=== PATIENT | male | born 1975 ===

== ENCOUNTER 2017-03-31 12:58 | Emergency (ER) | payer MEDICARE ==
[2017-03-31 13:25] VITALS: TEMP 99
--- NOTE | 2017-03-31 13:33 | ED PDOC ---
Arrival/HPI - General Chief Complaint: Upper Extremity Problem/Injury Time Seen by Provider: 03/31/17 13:28 Historian: Patient - History of Present Illness Narrative History of Present Illness (Text): 03/31/17 13:29 This 41 yo male with pmh chronic neck and back pain, presents to this ED c/o left shoulder pain since yesterday. Patient denies trauma, fall, heavy lifting , weakness, paresthesias, skin rash, or abnormal gait. Time/Duration: Other (see hpi) Quality: Aching Context: Home Past Medical History - Provider Review Nursing Documentation Reviewed: Yes - Infectious Disease Hx of Infectious Diseases: None - Musculoskeletal/Rheumatological Hx Back Pain: Yes Hx Spinal Stenosis: Yes - Psychiatric Hx Anxiety: Yes Hx Substance Use: No - Surgical History Other/Comment: Neck Surgery Family/Social History - Physician Review Nursing Documentation Reviewed: Yes Family/Social History: Other (noncontributory) Smoking Status: Never Smoked Hx Alcohol Use: No Hx Substance Use: No Allergies/Home Meds Allergies/Adverse Reactions: Allergies No Known Allergies Allergy (Verified 03/31/17 13:18) Home Medications: Home Meds Medication Instructions Recorded Confirmed Cyclobenzaprine [Flexeril] 10 mg PO HS 04/18/15 03/31/17 Amitriptyline [Elavil] 25 mg PO HS 03/31/17 03/31/17 Gabapentin [Neurontin] 1 tab PO Q6 03/31/17 03/31/17 Zolpidem [Ambien] 1 tab PO HS 03/31/17 03/31/17 Review of Systems - Review of Systems Constitutional: Normal. absent: Fatigue, Weight Change, Fevers Eyes: Normal ENT: Normal Respiratory: Normal Cardiovascular: Normal Gastrointestinal: Normal Genitourinary Male: Normal Musculoskeletal: Other (see hpi) Skin: Normal Neurological: Normal Endocrine: Normal Hemo/Lymphatic: Normal Psychiatric: Normal Physical Exam Vital Signs Temp Pulse Resp BP Pulse Ox 03/31/17 15:43 88 16 118/78 98 03/31/17 13:24 99.0 F 99 H 17 133/87 97 Temperature: Afebrile Blood Pressure: Normal Pulse: Regular Respiratory Rate: Normal Appearance: Positive for: Well-Appearing, Non-Toxic, Comfortable Pain Distress: None Mental Status: Positive for: Alert and Oriented X 3 - Systems Exam Head: Present: Atraumatic, Normocephalic Pupils: Present: PERRL Extroacular Muscles: Present: EOMI Conjunctiva: Present: Normal Mouth: Present: Moist Mucous Membranes Neck: Present: Normal Range of Motion, Trachea Midline. No: Meningeal Signs, MIDLINE TENDERNESS, Paraspinal Tenderness, Lymphadenopathy Respiratory/Chest: Present: Clear to Auscultation, Good Air Exchange. No: Respiratory Distress, Accessory Muscle Use Cardiovascular: Present: Regular Rate and Rhythm, Normal S1, S2. No: Murmurs Abdomen: Present: Normal Bowel Sounds. No: Tenderness, Distention, Peritoneal Signs Back: Present: Normal Inspection. No: CVA Tenderness Upper Extremity: Present: Normal Inspection, Normal ROM, NORMAL PULSES, Tenderness, Capillary Refill < 2s. No: Cyanosis, Edema Lower Extremity: Present: Normal Inspection. No: Edema Neurological: Present: GCS=15, CN II-XII Intact, Speech Normal, Motor Func Grossly Intact, Normal Sensory Function, Normal Cerebellar Funct, Gait Normal Skin: Present: Warm, Dry, Normal Color. No: Rashes Psychiatric: Present: Alert, Oriented x 3, Normal Insight, Normal Concentration Medical Decision Making ED Course and Treatment: 03/31/17 15:17 Re-evaluation. Patient feels better. Discussed results and plan with patient who expresses understanding. All questions answered and there is agreement with the plan to discharge home with instructions. Patient stable for discharge. Return if symptoms persist or worsen. Patient was recommended to f/u orthopedist for his chronic neck and back pain Re-evaluation Time: 15:17 Reassessment Condition: Re-examined, Improved - Medication Orders Current Medication Orders: Discontinued Medications Diazepam (Valium) 10 mg PO ONCE ONE PRN Reason: Protocol Stop: 03/31/17 13:29 Last Admin: 03/31/17 13:42 Dose: 10 mg Ketorolac Tromethamine (Toradol) 30 mg IM STAT STA Stop: 03/31/17 13:29 Last Admin: 03/31/17 13:42 Dose: 30 mg [facility] Pain Assessment Document 03/31/17 13:42 RG (Rec: 03/31/17 13:43 JAGUAR [id number]) Pain Reassessment Is this a pain reassessment? Yes Sleep Is patient sleeping during reassessment? No Presence of Pain Presence of Pain Yes Pain Scale Used Pain Scale Used Numeric Location Left, Right or Bilateral Left Pain Location Body Site Shoulder Description Description Constant Intensity of Pain at present 9 Pain Behavior Moaning Grasping Site Aggravating Factors ADL's Changing Position Exercise/Activity Contant IM Administration Charges Document 03/31/17 13:42 (Rec: 03/31/17 13:43 [id number]) Injection Site MAR Injection Site Left Deltoid Charges for Administration # of IM Administrations 1 Re-Assess: MAR Pain Assessment Document 03/31/17 14:42 RG (Rec: 03/31/17 15:43 [id number] Pain Reassessment Is this a pain reassessment? Yes Location Left, Right or Bilateral Right Pain Location Body Site Shoulder Description Description Constant Intensity of Pain at present 5 Pain Behavior Guarding Disposition/Present on Arrival - Present on Arrival Any Indicators Present on Arrival: No History of DVT/PE: No History of Uncontrolled Diabetes: No Urinary Catheter: No History of Decub. Ulcer: No History Surgical Site Infection Following: None - Disposition Have Diagnosis and Disposition been Completed?: Yes Diagnosis: Muscle spasm of left shoulder Disposition: HOME/ ROUTINE Disposition Time: 15:18 Patient Plan: Discharge Condition: IMPROVED Discharge Instructions (ExitCare): Muscle Spasm (ED) Additional Instructions: Call private doctor for follow up visit in 1-2 days. Take medication as instructed. return to emergency if symptoms worsen. Prescriptions: Famotidine [Pepcid] 40 mg PO DAILY #10 tablet Methocarbamol [Robaxin-750] 750 mg PO TID #21 tab Naproxen 500 mg PO BID PRN #14 tab PRN Reason: Pain, Severe (8-10) Referrals: PCP,NO [Primary Care Provider] - Follow up with primary Adele Conrad MD [Staff Provider] - Follow up with primary Forms: [employer] (Maori), WORK NOTE
[2017-03-31 15:44] VITALS: BP 118/78; PULSE 88; RESP 16; O2SAT 98
== END 2017-03-31 15:46 | disposition home or self-care (01) ==
LOC: ED 12:58
DX: M62.838 Other muscle spasm (principal)
CPT/HCPCS: 96372; 99284; J1885

== ENCOUNTER 2017-04-02 14:33 | Emergency (ER) | payer MEDICARE ==
[2017-04-02 14:40] VITALS: BMI 23.9
[2017-04-02 14:45] VITALS: RESP 18; TEMP 97.8; O2SAT 95
[2017-04-02] MEDS ORDERED: Oxycodone/Acetaminophen 5/325 mg Tab PO STA (16:07)
--- NOTE | 2017-04-02 16:08 | ED PDOC ---
Arrival/HPI - General Chief Complaint: Upper Extremity Problem/Injury Time Seen by Provider: 04/02/17 15:57 Historian: Patient, Partner - History of Present Illness Narrative History of Present Illness (Text): you were treated in the ED today for left shoulder persistent pain but otherwise without any trauma/injury/neck pain/nausea/vomiting/headache/dizziness /difficulty breathing/chest pain/abdomen pain/numbness/tingling/loss of limb function/pain with urination. 04/02/17 16:15 Time/Duration: Other (2 days) Symptom Course: Unchanged Quality: Aching Severity Level: 7 Activities at Onset: Rest Context: Sitting Past Medical History - Provider Review Nursing Documentation Reviewed: Yes - Travel History Have you recently traveled outside [place] w/in the past 3 mons?: No - Infectious Disease Hx of Infectious Diseases: None - Musculoskeletal/Rheumatological Hx Back Pain: Yes Hx Spinal Stenosis: Yes - Psychiatric Hx Anxiety: Yes Hx Substance Use: No - Surgical History Other/Comment: Neck Surgery - Anesthesia Hx Anesthesia: Yes Hx Anesthesia Reactions: No Hx Malignant Hyperthermia: No Family/Social History - Physician Review Nursing Documentation Reviewed: Yes Family/Social History: No Known Family HX Smoking Status: Never Smoked Hx Alcohol Use: No Hx Substance Use: No Allergies/Home Meds Allergies/Adverse Reactions: Allergies No Known Allergies Allergy (Verified 03/31/17 13:18) Home Medications: Home Meds Medication Instructions Recorded Confirmed Cyclobenzaprine [Flexeril] 10 mg PO HS 04/18/15 04/02/17 Amitriptyline [Elavil] 25 mg PO HS 03/31/17 04/02/17 Gabapentin [Neurontin] 1 tab PO Q6 03/31/17 04/02/17 Zolpidem [Ambien] 1 tab PO HS 03/31/17 04/02/17 Review of Systems - Review of Systems Constitutional: Normal Eyes: Normal ENT: Normal Respiratory: Normal Cardiovascular: Normal Gastrointestinal: Normal Genitourinary Male: Normal Musculoskeletal: Other (left shoulder pain) Skin: Normal Neurological: Normal Endocrine: Normal Hemo/Lymphatic: Normal Psychiatric: Normal Physical Exam Vital Signs Reviewed: Yes Vital Signs Temp Pulse Resp BP Pulse Ox 04/02/17 16:10 98 H 18 122/79 95 04/02/17 14:42 97.8 F 107 H 18 124/86 95 Temperature: Afebrile Blood Pressure: Hypertensive Pulse: Tachycardic Respiratory Rate: Normal Appearance: Positive for: Uncomfortable Pain Distress: Moderate Mental Status: Positive for: Alert and Oriented X 3 - Systems Exam Head: Present: Atraumatic, Normocephalic Pupils: Present: PERRL Extroacular Muscles: Present: EOMI Conjunctiva: Present: Normal Ears: Present: Normal Mouth: Present: Moist Mucous Membranes Pharnyx: Present: Normal Nose (External): Present: Atraumatic Nose (Internal): Present: Normal Inspection Neck: Present: Normal Range of Motion Respiratory/Chest: Present: Clear to Auscultation, Good Air Exchange Cardiovascular: Present: Regular Rate and Rhythm Abdomen: No: Tenderness, Distention, Normal Bowel Sounds, Peritoneal Signs, Rebound, Guarding, McBurney's Point Tender, Rovsing's Sign Present, Hernias, Feeding Tubes, Ostomy Tubes, Mass/Organomegaly, Scars, Other Back: Present: Normal Inspection Upper Extremity: Present: NORMAL PULSES, Neurovascularly Intact, Capillary Refill < 2s, Other (left shoulder +rom/warm/sensation/cap refill/radial pulse. + left shoulder tenderness.) Lower Extremity: Present: Normal Inspection Neurological: Present: GCS=15, CN II-XII Intact, Speech Normal, Motor Func Grossly Intact Skin: Present: Warm, Normal Color Psychiatric: Present: Alert, Oriented x 3, Normal Insight, Normal Concentration Medical Decision Making ED Course and Treatment: you were treated in the ED today for left shoulder persistent pain but otherwise without any trauma/injury/neck pain/nausea/vomiting/headache/dizziness /difficulty breathing/chest pain/abdomen pain/numbness/tingling/loss of limb function/pain with urination. You were otherwise breathing easily, smiling with your fiance, good strength/sensation, walking easily, clear lungs, no abdomen tenderness, no fever temp 97.8, heart rate improved 98, stable breathing rate 18, excellent oxygen level 95% room air, elevated blood pressure 124/86 which we recommend repeat in 2-3 days primary care office to determine further treatment, radiology left shoulder initial no acute findings, percocet done in the ED with improvement, counselled to keep left shoulder in sling and thus discharged home with fiance. 1. Recommend tylenol for mild pain. 2. Recommend motrin for moderate pain. 3. Recommend follow-up primary care 2-3 days to review symptoms, referral to orthopedics clinic. 4. If any worsening pain, fever , chills, nausea, vomiting, difficulty breathing, numbness, loss of limb function, pain with urination or any medical condition then return to the ED. 04/02/17 16:12 04/02/17 18:15 - RAD Interpretation Radiology Orders: 04/02/17 16:06 SHOULDER LEFT [RAD] Stat - Medication Orders Current Medication Orders: Discontinued Medications Oxycodone/Acetaminophen (Percocet 5/325 Mg Tab) 1 tab PO STAT STA Stop: 04/02/17 16:08 Last Admin: 04/02/17 16:46 Dose: 1 tab MAR Pain Assessment Document 04/02/17 16:46 JAGUAR (Rec: 04/02/17 16:46 RG [id number]) Pain Reassessment Is this a pain reassessment? No Presence of Pain Presence of Pain Yes Location Left, Right or Bilateral Left Pain Location Body Site Neck Shoulder Description Description Constant Pain Behavior Moaning Disposition/Present on Arrival - Present on Arrival Any Indicators Present on Arrival: No History of DVT/PE: No History of Uncontrolled Diabetes: No Urinary Catheter: No History of Decub. Ulcer: No History Surgical Site Infection Following: None - Disposition Have Diagnosis and Disposition been Completed?: Yes Diagnosis: Shoulder pain, left Disposition: HOME/ ROUTINE Disposition Time: 18:15 Patient Plan: Discharge Condition: IMPROVED Additional Instructions: you were treated in the ED today for left shoulder persistent pain but otherwise without any trauma/injury/neck pain/nausea/vomiting/headache/dizziness /difficulty breathing/chest pain/abdomen pain/numbness/tingling/loss of limb function/pain with urination. You were otherwise breathing easily, smiling with your fiance, good strength/sensation, walking easily, clear lungs, no abdomen tenderness, no fever temp 97.8, heart rate improved 98, stable breathing rate 18, excellent oxygen level 95% room air, elevated blood pressure 124/86 which we recommend repeat in 2-3 days primary care office to determine further treatment, radiology left shoulder initial no acute findings, percocet done in the ED with improvement, counselled to keep left shoulder in sling and thus discharged home with fiance. 1. Recommend tylenol for mild pain. 2. Recommend motrin for moderate pain. 3. Recommend follow-up primary care 2-3 days to review symptoms, referral to orthopedics clinic. 4. If any worsening pain, fever , chills, nausea, vomiting, difficulty breathing, numbness, loss of limb function, pain with urination or any medical condition then return to the ED. Forms: [employer] (Stateless)
[2017-04-02 16:10] VITALS: PULSE 98
[2017-04-02 18:43] VITALS: BP 125/80
--- NOTE | 2017-04-03 08:28 | RAD ---
PROCEDURE: Radiographs of the Left Shoulder HISTORY: 41yoM, left shoulder pain COMPARISON: None available. FINDINGS: BONES: No acute displaced fracture. The distal clavicle and underlying ribs appear intact. Partially imaged cervical fusion hardware. JOINTS: No acute dislocation. SOFT TISSUES: Soft tissues appear unremarkable. No evidence of radiopaque foreign body. IMPRESSION: No acute displaced fracture or dislocation evident. If symptoms persist or if there is continued clinical concern, x-ray follow-up in 7-10 days should be considered.
== END 2017-04-02 18:44 | disposition home or self-care (01) ==
LOC: ED 14:33
DX: M25.512 Pain in left shoulder (principal)

== ENCOUNTER 2017-04-08 17:05 | Emergency (ER) | payer MEDICARE ==
[2017-04-08 17:05] VITALS: BMI 23.9
[2017-04-08 17:19] VITALS: RESP 18; TEMP 98
[2017-04-08] MEDS ORDERED: Oxycodone/Acetaminophen 5/325 mg Tab PO STA (17:27)
--- NOTE | 2017-04-08 17:31 | ED PDOC ---
Arrival/HPI - General Chief Complaint: Upper Extremity Problem/Injury Time Seen by Provider: 04/08/17 17:17 Historian: Patient - History of Present Illness Narrative History of Present Illness (Text): 04/08/17 17:31 Pt p/w + ~ 1 week onset of left shoulder/arm pain; + waxing and waning pain; similar pains in the past and pt was diagnosed with cervical origin pain ( likely cervical radiculopathy) as well as shoulder bursitis; pt states he arrived to the ED < 1 week ago and complained of the same pain, received an injection and some prescriptions for at home treatment; pt states he has not felt any improvement; pt states left arm pain is severe now at 9-10/10; pt states certain positions makes the pain worse; pt described occasional left hand numbness/tingling; pt denied Fever/chills/sweats, no cp/sob/palpitations, no abd pain, no n/v, no urinary/bowel changes, no fall/trauma/sick contact, no travel insurance agent denied lesions/rashes pt denied other complaints pt is here for further eval. 04/08/17 18:34 pt is right hand dominate 04/08/17 18:42 pt s/p neck surgery few years ago pt s/p lumbar surgery at [place] last year DEC 2016 Time/Duration: 1 week Symptom Onset: Gradual Symptom Course: Worsening Quality: Tightness, Throbbing Severity Level: 10, Severe Activities at Onset: Rest Context: Home Past Medical History - Provider Review Nursing Documentation Reviewed: Yes - Travel History Have you recently traveled outside [place] w/in the past 3 mons?: No - Past History Past History: No Previous - Infectious Disease Hx of Infectious Diseases: None - Musculoskeletal/Rheumatological Hx Back Pain: Yes Hx Herniated Disk: Yes Hx Spinal Stenosis: Yes - Psychiatric Hx Anxiety: Yes Hx Substance Use: No - Surgical History Other/Comment: Neck Surgery - Anesthesia Hx Anesthesia: Yes Hx Anesthesia Reactions: No Hx Malignant Hyperthermia: No Family/Social History Family/Social History: No Known Family HX Smoking Status: Light Smoker < 10 Cigarettes Daily Hx Alcohol Use: No Hx Substance Use: No Hx Substance Use Treatment: No Allergies/Home Meds Allergies/Adverse Reactions: Allergies No Known Allergies Allergy (Verified 03/31/17 13:18) Home Medications: Home Meds Medication Instructions Recorded Confirmed Cyclobenzaprine [Flexeril] 10 mg PO HS 04/18/15 04/08/17 Amitriptyline [Elavil] 25 mg PO HS 03/31/17 04/08/17 Gabapentin [Neurontin] 1 tab PO Q6 03/31/17 04/08/17 Zolpidem [Ambien] 1 tab PO HS 03/31/17 04/08/17 Review of Systems - Review of Systems Constitutional: Normal Eyes: Normal ENT: Normal Respiratory: Normal Cardiovascular: Normal Gastrointestinal: Normal Genitourinary Male: Normal Musculoskeletal: Neck Pain, Other (left shoulder/arm pain) Skin: Normal Neurological: Normal Endocrine: Normal Hemo/Lymphatic: Normal Psychiatric: Normal Physical Exam Vital Signs Reviewed: Yes Vital Signs Temp Pulse Resp BP Pulse Ox 04/08/17 17:13 98.0 F 120 H 18 135/90 96 Temperature: Afebrile Blood Pressure: Normal Pulse: Tachycardic Respiratory Rate: Normal Appearance: Positive for: Well-Appearing, Uncomfortable, Other (uncomfortable, alert/awake, GCS = 15, oriented x 3, mild distress due to pain, pt is sitting on chair holding onto left shoulder due to pain; cooperative, follows commands with ease) Pain Distress: Mild Mental Status: Positive for: Alert and Oriented X 3 - Systems Exam Head: Present: Atraumatic, Normocephalic Pupils: Present: PERRL, Other (visual field intact b/l, no nystagmus, no photophobia, sclera anicteric) Extroacular Muscles: Present: EOMI Conjunctiva: Present: Normal Ears: Present: Normal Mouth: Present: Moist Mucous Membranes, Normal Teeth, Other (no drooling/stridor , no exudate/lesions, uvula/tongue are midline) Pharnyx: Present: Normal Nose (External): Present: Atraumatic Nose (Internal): Present: Normal Inspection Neck: Present: Normal Range of Motion, Trachea Midline. No: MIDLINE TENDERNESS Respiratory/Chest: Present: Clear to Auscultation, Good Air Exchange Cardiovascular: Present: Regular Rate and Rhythm, Normal S1, S2. No: Murmurs Abdomen: Present: Normal Bowel Sounds, Other (well nourished male, no focal tenderness, no gaffney's sign, no mcburney's point tenderness, no masses/rebound/ guarding/rigidity) Back: Present: Normal Inspection. No: Midline Tenderness Upper Extremity: Present: Normal Inspection, NORMAL PULSES, Neurovascularly Intact, Capillary Refill < 2s, Other (decr ROM to left shoulder, no gross deformities noted, + crepitus noted to left shoulder with passive movement; neurovasc intact b/l, strength 5/5 grossly intact in all limbs) Lower Extremity: Present: Normal Inspection, NORMAL PULSES, Normal ROM, Neurovascularly Intact, Capillary Refill < 2 s Neurological: Present: GCS=15, CN II-XII Intact, Speech Normal Skin: Present: Warm, Normal Color, Other (cap refill < 1sec, no ulcerations, no petechiae, no rashes). No: Rashes Psychiatric: Present: Alert, Oriented x 3 Medical Decision Making ED Course and Treatment: 04/08/17 17:28 Impression: left shoulder/arm pain, atraumatic; cervical radiculopathy i have consider all the differential diagnosis regarding pt's chief medical complaints/clinical findings, including but are not limited to: left shoulder pain; ? cervical radiculopathy; unlikely ACS; ? brusitis A/P: left arm/shoulder pain - xray: due to patient been in the ED x 2 (tuesday/tue?), already had an xray, without trauma, i do not recommend another xray; pt is in agreement - shoulder sling: pt was provided a sling on his previous ED visit, pt states he just didnt bring it without currently - ekg - observe - supportive care 04/08/17 18:48 pt is doing well, more comfortable pt states pain appears to be easing but he continues to feel it vital signs are much improved pt is made aware of his medical results pt is encouraged RICE txt pt is encouraged using his sling as prescribed pt will f/u as directed pt will be discharged home 04/08/17 18:51 Re-evaluation Time: 18:25 Reassessment Condition: Improving,but remains with symptoms - RAD Interpretation Radiology Orders: 04/08/17 17:45 SHOULDER LEFT [RAD] Stat no acute fx/dislocation Senior Gis Analyst: ED Physician - Medication Orders Current Medication Orders: Discontinued Medications Diazepam (Valium) 5 mg PO ONCE ONE PRN Reason: Protocol Stop: 04/08/17 17:28 Last Admin: 01/26/18 17:40 Dose: 5 mg Ketorolac Tromethamine (Toradol) 60 mg IM STAT STA Stop: 04/08/17 17:28 Last Admin: 04/08/17 17:40 Dose: 60 mg MAR Pain Assessment Document 04/08/17 17:40 IT (Rec: 04/08/17 17:40 IT [id number]) Pain Reassessment Is this a pain reassessment? No Sleep Is patient sleeping during reassessment? No Presence of Pain Presence of Pain Yes Location Left, Right or Bilateral Left Pain Location Body Site Shoulder IM Administration Charges Document 04/08/17 17:40 IT (Rec: 04/08/17 17:40 IT [id number]) Injection Site MAR Injection Site Right Deltoid Charges for Administration # of IM Administrations 1 Oxycodone/Acetaminophen (Percocet 5/325 Mg Tab) 2 tab PO STAT STA Stop: 04/08/17 17:28 Last Admin: 04/08/17 17:40 Dose: 2 tab MAR Pain Assessment Document 04/08/17 17:40 IT (Rec: 04/08/17 17:40 IT [id number]) Pain Reassessment Is this a pain reassessment? No Sleep Is patient sleeping during reassessment? No Presence of Pain Presence of Pain Yes Pain Scale Used Pain Scale Used Numeric Disposition/Present on Arrival - Present on Arrival Any Indicators Present on Arrival: No History of DVT/PE: No History of Uncontrolled Diabetes: No Urinary Catheter: No History of Decub. Ulcer: No History Surgical Site Infection Following: None - Disposition Have Diagnosis and Disposition been Completed?: Yes Diagnosis: Shoulder pain, left, Cervical radicular pain, Bursitis of left shoulder Disposition: HOME/ ROUTINE Disposition Time: 18:29 Patient Plan: Discharge Condition: STABLE Discharge Instructions (ExitCare): Shoulder Pain (ED), Cervical Radiculopathy ( ED), Shoulder Bursitis (ED) Print Language: POLISH Additional Instructions: Make sure to see your doctor in 1-2 days DRINK PLENTY OF FLUIDS AVOID repetitive motions avoid heavy lifting/weight bearing USE left shoulder sling you have at home as often as you can ICE or Heat left shoulder region 15-20min/hr over 1-2 days for relief encouraged you to stop smoking take your medications as prescribed RETURN TO ED IF worse pain, cant breath, persistent vomiting, high fever >101- 102 for hours, altered behavior, unable to urinate, heavy/persistent bleeding, passing out, chest pain, or other medical emergencies Prescriptions: diaZEpam [Valium] 5 mg PO TID PRN #12 tab PRN Reason: Muscle Spasm Ibuprofen [Motrin] 400 mg PO QID #30 tab oxyCODONE/Acetaminophen [Percocet 5/325 mg Tab] 1 tab PO QID PRN #12 tab PRN Reason: Pain, Severe (8-10) Referrals: [facility] Robert Kauffman, [Primary Care Provider] - Follow up with primary Kin Turcios MD [Staff Provider] - Follow up with primary Primitivo Riojas MD [Staff Provider] - Follow up with primary Forms: [employer] (Azeri)
[2017-04-08 18:44] VITALS: BP 137/91; PULSE 98; O2SAT 98
--- NOTE | 2017-04-09 09:26 | RAD ---
PROCEDURE: Radiographs of the Left Shoulder HISTORY: Left shoulder pain, no trauma COMPARISON: No prior. FINDINGS: BONES: Bone alignment and mineralization are normal. There is no acute displaced fracture or bone destruction. JOINTS: Normal. Glenohumeral and acromioclavicular joints preserved. No osteoarthritis. SOFT TISSUES: Normal. OTHER FINDINGS: None. IMPRESSION: Normal examination.
--- NOTE | 2017-04-09 16:04 | CARD ---
APPROVED REPORT EKG Measurement Heart [id number] CT [id number] <Conclusion> Sinus tachycardia Possible Left atrial enlargement Borderline ECG
== END 2017-04-08 18:44 | disposition home or self-care (01) ==
LOC: ED 17:05
DX: M54.12 Radiculopathy, cervical region (principal); M75.52 Bursitis of left shoulder; M25.512 Pain in left shoulder
CPT/HCPCS: 73030; 93005; 96372; 99283; J1885